=== PATIENT | male | born 1945 | race Caucasian/White ===

== ENCOUNTER 2018-04-25 10:20 | Outpatient (CLI) | payer MEDICARE ==
[2018-04-25] MEDS ORDERED: ALBU8.5H8 IH (11:38)
[2018-04-25] MEDS ORDERED: CALC500T11 PO (11:38)
[2018-04-25] MEDS ORDERED: NAPR220C15 PO (11:38)
[2018-04-25] MEDS ORDERED: LORA10TA7 PO (11:38)
[2018-04-25] MEDS ORDERED: TRAM50TA2 PO (11:38)
[2018-04-25] MEDS ORDERED: CHOL2000 PO (11:38)
[2018-04-25] MEDS ORDERED: CYAN-19 PO (11:38)
[2018-04-25 11:39] LABS: EOSINOPHILS # (AUTO) 0.1 X10'3 (0-0.9); EOSINOPHILS % (AUTO) 1.6 % (0-6); LYMPHOCYTES # (AUTO) 0.6 X10'3 (1.1-4.8); LYMPHOCYTES % (AUTO) 13.7 % (21-51); MEAN CORPUSCULAR HEMOGLOBIN 32.1 PG (27.0-31.0); MEAN CORPUSCULAR HGB CONC 34.2 % (33.0-36.5); MEAN CORPUSCULAR VOLUME 93.7 FL (78-98); MEAN PLATELET VOLUME 11.7 FL (7.4-10.4); MONOCYTES # (AUTO) 0.3 X10'3 (0-0.9); MONOCYTES % (AUTO) 7.4 % (2-12); NEUTROPHILS # (AUTO) 3.5 X10'3 (1.8-7.7); NEUTROPHILS % (AUTO) 76.3 % (42-75); PRE OP HEMOGLOBIN 15.4 g/dL (14.0-17.9); RED CELL DISTRIBUTION WIDTH 13.8 % (11.5-14.5)
[2018-04-25 11:48] LABS: PRE OP INR 1.1 INR
[2018-04-25 11:53] LABS: ALBUMIN 3.9 G/DL (3.4-5.0); ALKALINE PHOSPHATASE 67 IU/L (46-116); BLOOD UREA NITROGEN 15 MG/DL (7-18); CALCIUM 9.1 MG/DL (8.5-10.1); CHLORIDE 104 MMOL/L (99-107); CREATININE 0.88 MG/DL (0.60-1.10); PRE OP ALT 18 U/L (30-65); PRE OP ANION GAP 9 (8-16); PRE OP AST 18 U/L (10-37); PRE OP BILIRUB, TOTAL 0.8 MG/DL (0.0-1.0); PRE OP GLUCOSE 76 MG/DL (70-104); PRE OP POTASSIUM 3.9 MMOL/L (3.4-5.1); PRE OP SODIUM 141 MMOL/L (135-145); TOTAL PROTEIN 7.8 G/DL (6.4-8.2); eGFR 85 ML/MIN
[2018-04-25 12:13] LABS: PRE OP PLATELET COUNT 74 X10'3 (140-440)
[2018-05-01] MEDS ORDERED: ceFAZolin 1000mg inj ONE (06:33)
[2018-05-01] MEDS ORDERED: heparin 10,000 units/1 ML INJ ONE ×2 (06:33)
[2018-05-01] MEDS ORDERED: morphine 4 MG/ML inj SYRINge ONE ×2 (09:07→10:04)
== END 2018-04-25 23:59 | disposition home or self-care (01) ==
LOC: PRE-OP 10:20 → EDSTATUS 05-03 07:30
PROVIDERS: ATTEND Orthopaedic Surgery
DX: Z01.818 Encounter for other preprocedural examination (principal); M17.12 Unilateral primary osteoarthritis, left knee; J44.9 Chronic obstructive pulmonary disease, unspecified; K76.89 Other specified diseases of liver; R00.1 Bradycardia, unspecified; K74.60 Unspecified cirrhosis of liver; M10.9 Gout, unspecified
CPT/HCPCS: 36415; 71046; 80053; 85025; 85610; 85730; 86885; 86900; 86901; 86920; 87070; 93005

== ENCOUNTER 2018-04-29 02:29 | Inpatient (IN) | payer MEDICARE, OTHER ==
[2018-04-29] VITALS (10 sets, daily range): BP systolic 114–136; BP diastolic 60–85
[~2018-04-29] VITALS: Ht 170.2 cm; Wt 97.7 kg
[~2018-04-29 02:29] MED LIST: ALBU8.5H8 IH; CALC500T11 PO; CHOL2000 PO; CYAN-19 PO; LORA10TA7 PO; NAPR220C15 PO; TRAM50TA2 PO
[2018-04-29] MEDS ORDERED: normal saline 1000ml 1,000 ML IV ONE ×2 (03:00→05:40)
[2018-04-29] MEDS ORDERED: morphine 4 MG/ML inj SYRINge IV ONE ×2 (03:00→05:40)
[2018-04-29] MEDS ORDERED: ondansetron/PF 4mg/2ml inj IV ONE (03:00)
[2018-04-29] MEDS ORDERED: iohexol 300mg/ml 100ml inj. ONE (03:27)
[2018-04-29 03:55] LABS: BASOPHILS % (AUTO) 0.3 % (0-1); EOSINOPHILS % (AUTO) 0.1 % (0-6); HEMATOCRIT 43.3 % (42.0-52.0); HEMOGLOBIN 14.9 g/dl (14.0-17.9); LYMPHOCYTES # (AUTO) 0.4 X10'3 (1.1-4.8); MEAN CORPUSCULAR HEMOGLOBIN 32.3 PG (27.0-31.0); MEAN CORPUSCULAR HGB CONC 34.5 % (33.0-36.5); MEAN CORPUSCULAR VOLUME 93.8 FL (78-98); MEAN PLATELET VOLUME 11.6 FL (7.4-10.4); MONOCYTES # (AUTO) 0.2 X10'3 (0-0.9); MONOCYTES % (AUTO) 2.3 % (2-12); NEUTROPHILS # (AUTO) 6.7 X10'3 (1.8-7.7); NEUTROPHILS % (AUTO) 92.3 % (42-75); PLATELET COUNT 75 X10'3 (140-440); RED BLOOD COUNT 4.62 X10'6 (4.70-6.10); RED CELL DISTRIBUTION WIDTH 13.6 % (11.5-14.5); WHITE BLOOD COUNT 7.3 X10'3 (4.5-11.0)
[2018-04-29 04:06] LABS: INR 1.1 INR; PROTHROMBIN TIME 11.5 SECONDS (9.0-12.0)
[2018-04-29 04:11] LABS: ALANINE AMINOTRANSFERASE 98 U/L (12-78); ALBUMIN 3.8 G/DL (3.4-5.0); ALKALINE PHOSPHATASE 132 IU/L (46-116); ANION GAP 11 (8-16); ASPARTATE AMINO TRANSFERASE 81 U/L (10-37); BLOOD UREA NITROGEN 20 MG/DL (7-18); BUN/CREATININE RATIO 21.7 (5.4-32.0); CALCIUM 9.4 MG/DL (8.5-10.1); CHLORIDE 102 MMOL/L (99-107); CREATININE 0.92 MG/DL (0.60-1.10); GLUCOSE 142 MG/DL (70-104); MAGNESIUM 1.9 MG/DL (1.5-2.4); POTASSIUM 3.9 MMOL/L (3.5-5.1); SODIUM 138 MMOL/L (135-145); TOTAL CARBON DIOXIDE 25.2 MMOL/L (24-32); TOTAL PROTEIN 7.8 G/DL (6.4-8.2); eGFR 80 ML/MIN
[2018-04-29 04:24] LABS: LIPASE 14900 U/L (73-393)
[2018-04-29] MEDS ORDERED: ALBU18HF2 INH (04:59)
[2018-04-29] MEDS ORDERED: CARB1DRO (04:59)
[2018-04-29] MEDS ORDERED: CARB1DRO EACHEYE (04:59)
[2018-04-29 06:02] LABS: CLARITY,URINE CLEAR (Clear); COLOR,URINE YELLOW (Yellow); GLUCOSE, URINE NEGATIVE (Neg); KETONES,URINE 15 mg/dl (Neg); LEUKOCYTE ESTERASE ,URINE NEGATIVE (Neg); NITRITES, URINE NEGATIVE (Neg); OCCULT BLOOD,URINE TRACE-INTACT (Neg); PROTEIN,URINE NEGATIVE (Neg)
[2018-04-29 06:04] LABS: UA COLLECTION TYPE NON-SPECIFIED
[2018-04-29 06:08] LABS: BACTERIA,URINE NONE SEEN /HPF (Neg); RBC,URINE 0-2 /HPF (0-2); SQUAMOUS EPITHELIAL CELL,UR NONE SEEN /LPF (FEW); WBC,URINE 0-4 /HPF (0-4)
[2018-04-29 06:09] LABS: MUCUS STRANDS MODERATE /LPF (Neg)
[2018-04-29] MEDS: normal saline 1000ml 1,000 ML IV SCH (07:56)
[2018-04-29] MEDS: docusate sod 100mg capsule PO SCH ×2 (08:00→19:28)
[2018-04-29] MEDS ORDERED: magnesium hydroxide 30ml (MOM) UD suspension PO PRN (08:00)
[2018-04-29] MEDS ORDERED: ondansetron/PF 4mg/2ml inj IV PRN (08:00)
[2018-04-29] MEDS ORDERED: magnesium Cl slow-release 64mg tablet PO PRN (08:00)
[2018-04-29] MEDS ORDERED: potassium Cl 20 mEq SR tablet PO PRN (08:00)
[2018-04-29] MEDS ORDERED: potassium Cl 40MEQ/NS 500ml 500 ML IV PRN ×2 (08:00)
[2018-04-29] MEDS ORDERED: magnesium 4gm in 100ml NS 100 ML IV PRN (08:00)
[2018-04-29] MEDS ORDERED: magnesium 1gm/100ml D5W IVPB 100 ML IV PRN (08:00)
[2018-04-29] MEDS ORDERED: piperacillin/tazo 3.375gm/50ml 50 ML IV SCH (08:00)
[2018-04-29] MEDS: K and/or MAG REPLACEMENT MC SCH (08:00)
[2018-04-29] MEDS ORDERED: acetaminophen 650mg rectal suppository RC PRN (08:00)
[2018-04-29] MEDS ORDERED: fentaNYL/PF 50MCG/1 ML 2ML syringe ONE (08:50)
[2018-04-29] MEDS ORDERED: LIDOcaine Viscous 15ml cup ONE (08:51)
[2018-04-29] MEDS ORDERED: diphenhydrAMINE 50 mg/ml inj ONE (08:51)
[2018-04-29] MEDS ORDERED: glucagon, human recombinant 1mg kit ONE (08:51)
[2018-04-29] MEDS ORDERED: MIDAZolam 5mg/5ml vial ONE (08:51)
[2018-04-29] MEDS ORDERED: iohexol 300 MG/1 ML 50ml polymer ONE (08:51)
[2018-04-29] MEDS ORDERED: levoFLOXACIN-Levaquin 500mg/D5 0 ML IV ONE (08:51)
[2018-04-29] MEDS ORDERED: normal saline 1000ml 1,000 ML IV SCH (08:54)
[2018-04-29] MEDS ORDERED: LIDOcaine Viscous 15ml cup PO ONE (08:55)
[2018-04-29] MEDS ORDERED: glucagon, human recombinant 1mg kit IV PRN (08:55)
[2018-04-29] MEDS ORDERED: simethicone 40mg/0.6ml oral drops 30ml MC ONE (08:55)
[2018-04-29] MEDS ORDERED: iohexol 300 MG/1 ML 50ml polymer IV ONE (08:55)
[2018-04-29] MEDS ORDERED: MIDAZolam 5mg/5ml vial IV PRN (08:55)
[2018-04-29] MEDS ORDERED: fentaNYL/PF 50MCG/1 ML 2ML syringe IV PRN (08:55)
[2018-04-29] MEDS: morphine 4 MG/ML inj SYRINge IV PRN ×4 (09:22→23:39)
[2018-04-29] MEDS: piperacillin/tazo 3.375gm/50ml 50 ML IV SCH ×2 (15:48→20:51)
[2018-04-29] MEDS ORDERED: traMADol 50MG tablet PO PRN (16:55)
[2018-04-29] MEDS: pantoprazole 40 MG vial IV SCH (18:06)
[2018-04-29] MEDS: lactobacillus rhamnosus 10,000 MMU CELLS/CAPSULE PO SCH (19:28)
[2018-04-29] MEDS ORDERED: albuterol 2.5 MG/3 ML nebule NEB PRN (20:00)
[2018-04-29] MEDS ORDERED: calcium carbonate 500mg chew tablet PO PRN (21:00)
[2018-04-29] MEDS ORDERED: acetaminophen 325mg tablet PO PRN (23:25)
[2018-04-30] VITALS: BP 99/65
[2018-04-30 01:00] VITALS: BP 122/68
[2018-04-30] MEDS: piperacillin/tazo 3.375gm/50ml 50 ML IV SCH ×4 (02:11→21:42)
[2018-04-30 05:27] LABS: PARTIAL THROMBOPLASTIN TIME 31 SECONDS (22-32)
[2018-04-30 05:49] LABS: ALANINE AMINOTRANSFERASE 54 U/L (12-78); ALBUMIN 2.9 G/DL (3.4-5.0); ALBUMIN/GLOBULIN RATIO 0.9 (1.1-1.5); ALKALINE PHOSPHATASE 83 IU/L (46-116); ANION GAP 9 (8-16); ASPARTATE AMINO TRANSFERASE 28 U/L (10-37); BILIRUBIN,TOTAL 2.5 MG/DL (0.1-1.0); BLOOD UREA NITROGEN 11 MG/DL (7-18); BUN/CREATININE RATIO 11.7 (5.4-32.0); CALCIUM 7.9 MG/DL (8.5-10.1); CHLORIDE 105 MMOL/L (99-107); CREATININE 0.94 MG/DL (0.60-1.10); GLUCOSE 77 MG/DL (70-104); MAGNESIUM 1.7 MG/DL (1.5-2.4); POTASSIUM 3.4 MMOL/L (3.5-5.1); SODIUM 141 MMOL/L (135-145); TOTAL CARBON DIOXIDE 26.9 MMOL/L (24-32); TOTAL PROTEIN 6.2 G/DL (6.4-8.2); eGFR 78 ML/MIN
[2018-04-30] MEDS: normal saline 1000ml 1,000 ML IV SCH (06:49)
[2018-04-30 07:39] VITALS: BP 129/74
[2018-04-30] MEDS ORDERED: iohexol 300 MG/1 ML 50ml polymer ONE (08:00)
[2018-04-30] MEDS: polyvinyl alcohol ophthalmic drops 15ml bottle EACHEYE SCH (08:00)
[2018-04-30] MEDS: K and/or MAG REPLACEMENT MC SCH (08:00)
[2018-04-30] MEDS: pantoprazole 40 MG vial IV SCH (08:18)
[2018-04-30] MEDS: loratadine 10mg tablet PO SCH (08:18)
[2018-04-30] MEDS: docusate sod 100mg capsule PO SCH ×2 (08:18→19:56)
[2018-04-30] MEDS: lactobacillus rhamnosus 10,000 MMU CELLS/CAPSULE PO SCH ×2 (08:18→19:56)
[2018-04-30] MEDS: vitamin D (cholecalciferol) 1,000 unit tablet PO SCH (08:19)
[2018-04-30] MEDS: morphine 4 MG/ML inj SYRINge IV PRN ×2 (08:19→13:20)
[2018-04-30] MEDS: cyanocobalamin 500mcg tablet PO SCH (08:19)
[2018-04-30 08:28] LABS: BASOPHILS % (AUTO) 0.2 % (0-1); EOSINOPHILS % (AUTO) 0.1 % (0-6); HEMATOCRIT 38.7 % (42.0-52.0); HEMOGLOBIN 13.4 g/dl (14.0-17.9); LYMPHOCYTES # (AUTO) 0.3 X10'3 (1.1-4.8); LYMPHOCYTES % (AUTO) 3.6 % (21-51); MEAN CORPUSCULAR HEMOGLOBIN 32.5 PG (27.0-31.0); MEAN CORPUSCULAR HGB CONC 34.7 % (33.0-36.5); MEAN CORPUSCULAR VOLUME 93.5 FL (78-98); MONOCYTES # (AUTO) 0.8 X10'3 (0-0.9); MONOCYTES % (AUTO) 8.6 % (2-12); NEUTROPHILS # (AUTO) 8.1 X10'3 (1.8-7.7); NEUTROPHILS % (AUTO) 87.5 % (42-75); PLATELET COUNT 51 X10'3 (140-440); RED BLOOD COUNT 4.14 X10'6 (4.70-6.10); RED CELL DISTRIBUTION WIDTH 13.5 % (11.5-14.5); WHITE BLOOD COUNT 9.2 X10'3 (4.5-11.0)
[2018-04-30] MEDS: potassium Cl 20 mEq SR tablet PO PRN ×3 (08:39→17:38)
[2018-04-30] MEDS ORDERED: cefazolin/dext.iso 2gm/50ml 50 ML IV ONE (12:00)
[2018-04-30 12:23] VITALS: BP 103/63
[2018-04-30] MEDS: naproxen 500mg tablet PO PRN (15:38)
[2018-04-30 19:50] VITALS: BP 106/60
[2018-05-01] VITALS (24 sets, daily range): BP systolic 91–125; BP diastolic 46–95
[2018-05-01] MEDS: piperacillin/tazo 3.375gm/50ml 50 ML IV SCH ×4 (03:07→20:18)
[2018-05-01] MEDS: morphine 4 MG/ML inj SYRINge IV PRN ×7 (03:15→17:09)
[2018-05-01] MEDS: normal saline 1000ml 1,000 ML IV SCH ×2 (04:43→17:14)
[2018-05-01 05:19] LABS: BASOPHILS % (AUTO) 0.2 % (0-1); EOSINOPHILS # (AUTO) 0.1 X10'3 (0-0.9); EOSINOPHILS % (AUTO) 1.4 % (0-6); HEMATOCRIT 37.3 % (42.0-52.0); LYMPHOCYTES # (AUTO) 0.4 X10'3 (1.1-4.8); LYMPHOCYTES % (AUTO) 5.6 % (21-51); MEAN CORPUSCULAR HEMOGLOBIN 32.6 PG (27.0-31.0); MEAN CORPUSCULAR HGB CONC 34.9 % (33.0-36.5); MEAN CORPUSCULAR VOLUME 93.5 FL (78-98); MEAN PLATELET VOLUME 11.7 FL (7.4-10.4); MONOCYTES # (AUTO) 0.6 X10'3 (0-0.9); MONOCYTES % (AUTO) 8.3 % (2-12); NEUTROPHILS # (AUTO) 6.2 X10'3 (1.8-7.7); NEUTROPHILS % (AUTO) 84.5 % (42-75); PARTIAL THROMBOPLASTIN TIME 30 SECONDS (22-32); PLATELET COUNT 51 X10'3 (140-440); RED BLOOD COUNT 3.99 X10'6 (4.70-6.10); RED CELL DISTRIBUTION WIDTH 13.5 % (11.5-14.5); WHITE BLOOD COUNT 7.4 X10'3 (4.5-11.0)
[2018-05-01 05:32] LABS: ALANINE AMINOTRANSFERASE 42 U/L (12-78); ALBUMIN 2.8 G/DL (3.4-5.0); ALBUMIN/GLOBULIN RATIO 0.8 (1.1-1.5); ALKALINE PHOSPHATASE 76 IU/L (46-116); ANION GAP 6 (8-16); ASPARTATE AMINO TRANSFERASE 20 U/L (10-37); BLOOD UREA NITROGEN 9 MG/DL (7-18); BUN/CREATININE RATIO 8.4 (5.4-32.0); CALCIUM 8.1 MG/DL (8.5-10.1); CHLORIDE 108 MMOL/L (99-107); CREATININE 1.07 MG/DL (0.60-1.10); GLUCOSE 86 MG/DL (70-104); LIPASE 231 U/L (73-393); MAGNESIUM 1.8 MG/DL (1.5-2.4); POTASSIUM 3.8 MMOL/L (3.5-5.1); SODIUM 139 MMOL/L (135-145); TOTAL CARBON DIOXIDE 25.4 MMOL/L (24-32); TOTAL PROTEIN 6.3 G/DL (6.4-8.2); eGFR 68 ML/MIN
[2018-05-01] MEDS ORDERED: cefazolin/dext.iso 2gm/50ml 50 ML IV ONE ×2 (06:00→06:30)
[2018-05-01] MEDS ORDERED: BUPIVAcaine/PF 2.5mg/ml (0.25%) 10ml vial ONE (06:43)
[2018-05-01] MEDS ORDERED: LIDOcaine 1% 30ml preserv. free vial ONE (06:43)
[2018-05-01] MEDS: pantoprazole 40 MG vial IV SCH (06:54)
[2018-05-01] MEDS ORDERED: EPHEDRINE SULFATE/0.9% NACL/PF 50 MG/5 ML ML IJ ONE (07:13)
[2018-05-01] MEDS ORDERED: dexamethasone sod phosphate 10mg/ml inj ONE (07:13)
[2018-05-01] MEDS ORDERED: sevoflurane 250ml liquid IH ONE (07:13)
[2018-05-01 07:22] LABS: LARGE PLATELETS FEW; PLATELET ESTIMATE DECREASED
[2018-05-01] MEDS ORDERED: fentaNYL/PF 50MCG/1 ML 2ML syringe ONE (07:23)
[2018-05-01] MEDS ORDERED: LIDOcaine 2% (20mg/ml) 5ml vial ONE (07:24)
[2018-05-01] MEDS ORDERED: propofol inj 20 ML IV ONE (07:24)
[2018-05-01] MEDS: cyanocobalamin 500mcg tablet PO SCH (08:00)
[2018-05-01] MEDS: polyvinyl alcohol ophthalmic drops 15ml bottle EACHEYE SCH (08:00)
[2018-05-01] MEDS: lactobacillus rhamnosus 10,000 MMU CELLS/CAPSULE PO SCH ×2 (08:00→20:19)
[2018-05-01] MEDS: loratadine 10mg tablet PO SCH (08:00)
[2018-05-01] MEDS: docusate sod 100mg capsule PO SCH ×2 (08:00→20:19)
[2018-05-01] MEDS: vitamin D (cholecalciferol) 1,000 unit tablet PO SCH (08:00)
[2018-05-01] MEDS: K and/or MAG REPLACEMENT MC SCH (08:00)
[2018-05-01] MEDS ORDERED: HYDROmorphone 1 mg/ml syringe IV PRN ×2 (08:10)
[2018-05-01] MEDS ORDERED: normal saline 1000ml 1,000 ML IV ONE (08:10)
[2018-05-01] MEDS ORDERED: ondansetron/PF 4mg/2ml inj IV PRN (08:10)
[2018-05-01] MEDS ORDERED: glycopyrrolate 0.2mg/ml inj ONE (08:38)
[2018-05-01] MEDS ORDERED: rocuronium 10mg/ml inj IV ONE (08:38)
[2018-05-01] MEDS ORDERED: neostigmine methylsulfate 1 MG/ML 10ml vial ONE (08:38)
[2018-05-01] MEDS ORDERED: ondansetron/PF 4mg/2ml inj ONE (08:39)
[2018-05-01] MEDS ORDERED: albuterol 60 PUFF/8GM Inhaler IH ONE (09:03)
[2018-05-01] MEDS ORDERED: HYDROcodone/acetaminophen 5mg/325mg tablet PO PRN (09:15)
[2018-05-01] MEDS: HYDROcodone/acetaminophen 10/325mg tab PO PRN ×2 (14:37→19:11)
[2018-05-02] VITALS: BP 90/53
[2018-05-02] MEDS: piperacillin/tazo 3.375gm/50ml 50 ML IV SCH ×2 (01:57→07:28)
[2018-05-02] MEDS: naproxen 500mg tablet PO PRN (01:57)
[2018-05-02 03:37] VITALS: BP 104/57
[2018-05-02 05:06] LABS: BASOPHILS % (AUTO) 0.1 % (0-1); EOSINOPHILS # (AUTO) 0.1 X10'3 (0-0.9); EOSINOPHILS % (AUTO) 1.1 % (0-6); HEMATOCRIT 36.3 % (42.0-52.0); HEMOGLOBIN 12.3 g/dl (14.0-17.9); LYMPHOCYTES # (AUTO) 0.4 X10'3 (1.1-4.8); LYMPHOCYTES % (AUTO) 5.2 % (21-51); MEAN CORPUSCULAR HEMOGLOBIN 31.9 PG (27.0-31.0); MEAN CORPUSCULAR HGB CONC 33.7 % (33.0-36.5); MEAN CORPUSCULAR VOLUME 94.6 FL (78-98); MEAN PLATELET VOLUME 12.7 FL (7.4-10.4); MONOCYTES # (AUTO) 0.7 X10'3 (0-0.9); NEUTROPHILS # (AUTO) 6.8 X10'3 (1.8-7.7); NEUTROPHILS % (AUTO) 84.6 % (42-75); PLATELET COUNT 58 X10'3 (140-440); RED BLOOD COUNT 3.84 X10'6 (4.70-6.10); RED CELL DISTRIBUTION WIDTH 13.5 % (11.5-14.5)
[2018-05-02 05:17] LABS: PARTIAL THROMBOPLASTIN TIME 23 SECONDS (22-32)
[2018-05-02 05:47] LABS: ALANINE AMINOTRANSFERASE 36 U/L (12-78); ALBUMIN 2.8 G/DL (3.4-5.0); ALBUMIN/GLOBULIN RATIO 0.8 (1.1-1.5); ALKALINE PHOSPHATASE 74 IU/L (46-116); ANION GAP 8 (8-16); ASPARTATE AMINO TRANSFERASE 23 U/L (10-37); BILIRUBIN,TOTAL 1.5 MG/DL (0.1-1.0); BLOOD UREA NITROGEN 12 MG/DL (7-18); BUN/CREATININE RATIO 7.1 (5.4-32.0); CALCIUM 8.3 MG/DL (8.5-10.1); CHLORIDE 104 MMOL/L (99-107); CREATININE 1.69 MG/DL (0.60-1.10); GLUCOSE 95 MG/DL (70-104); MAGNESIUM 1.7 MG/DL (1.5-2.4); POTASSIUM 4.2 MMOL/L (3.5-5.1); SODIUM 136 MMOL/L (135-145); TOTAL CARBON DIOXIDE 24.4 MMOL/L (24-32); TOTAL PROTEIN 6.3 G/DL (6.4-8.2); eGFR 40 ML/MIN
[2018-05-02] MEDS: loratadine 10mg tablet PO SCH (07:26)
[2018-05-02] MEDS: cyanocobalamin 500mcg tablet PO SCH (07:26)
[2018-05-02] MEDS: vitamin D (cholecalciferol) 1,000 unit tablet PO SCH (07:26)
[2018-05-02] MEDS: docusate sod 100mg capsule PO SCH ×2 (07:26→21:14)
[2018-05-02] MEDS: lactobacillus rhamnosus 10,000 MMU CELLS/CAPSULE PO SCH ×2 (07:26→21:14)
[2018-05-02] MEDS: pantoprazole 40 MG vial IV SCH (07:26)
[2018-05-02] MEDS: polyvinyl alcohol ophthalmic drops 15ml bottle EACHEYE SCH (07:29)
[2018-05-02 08:00] VITALS: BP_SYST 112; BP_SYST 94; BP_DIAS 53; BP_DIAS 56
[2018-05-02] MEDS: K and/or MAG REPLACEMENT MC SCH (08:00)
[2018-05-02 12:00] VITALS: BP 98/57
[2018-05-02] MEDS: normal saline 1000ml 1,000 ML IV SCH (18:32)
[2018-05-02 20:00] VITALS: BP 101/54
[2018-05-02] MEDS: tamsulosin 0.4mg capsule PO SCH (21:14)
[2018-05-03] VITALS: BP 102/55
[2018-05-03] MEDS: normal saline 1000ml 1,000 ML IV SCH (04:54)
[2018-05-03 05:23] LABS: HEMATOCRIT 32.1 % (42.0-52.0); HEMOGLOBIN 10.9 g/dl (14.0-17.9); MEAN CORPUSCULAR HEMOGLOBIN 31.7 PG (27.0-31.0); MEAN CORPUSCULAR VOLUME 93.4 FL (78-98); MEAN PLATELET VOLUME 12.6 FL (7.4-10.4); PLATELET COUNT 67 X10'3 (140-440); RED BLOOD COUNT 3.44 X10'6 (4.70-6.10); RED CELL DISTRIBUTION WIDTH 13.2 % (11.5-14.5); WHITE BLOOD COUNT 3.8 X10'3 (4.5-11.0)
[2018-05-03 06:05] LABS: ALANINE AMINOTRANSFERASE 24 U/L (12-78); ALBUMIN 2.4 G/DL (3.4-5.0); ALBUMIN/GLOBULIN RATIO 0.8 (1.1-1.5); ALKALINE PHOSPHATASE 62 IU/L (46-116); ANION GAP 8 (8-16); ASPARTATE AMINO TRANSFERASE 18 U/L (10-37); BILIRUBIN,TOTAL 0.9 MG/DL (0.1-1.0); BLOOD UREA NITROGEN 13 MG/DL (7-18); BUN/CREATININE RATIO 8.2 (5.4-32.0); CALCIUM 8.8 MG/DL (8.5-10.1); CHLORIDE 109 MMOL/L (99-107); CREATININE 1.58 MG/DL (0.60-1.10); GLUCOSE 88 MG/DL (70-104); MAGNESIUM 1.8 MG/DL (1.5-2.4); POTASSIUM 3.8 MMOL/L (3.5-5.1); SODIUM 141 MMOL/L (135-145); TOTAL CARBON DIOXIDE 23.6 MMOL/L (24-32); TOTAL PROTEIN 5.6 G/DL (6.4-8.2); eGFR 43 ML/MIN
[2018-05-03 06:41] LABS: TOTAL CELLS COUNTED 100
[2018-05-03 06:42] LABS: LARGE PLATELETS FEW; PLATELET ESTIMATE DECREASED
[2018-05-03 07:17] VITALS: BP 125/68
[2018-05-03] MEDS: polyvinyl alcohol ophthalmic drops 15ml bottle EACHEYE SCH (08:00)
[2018-05-03] MEDS: K and/or MAG REPLACEMENT MC SCH (08:00)
[2018-05-03] MEDS: lactobacillus rhamnosus 10,000 MMU CELLS/CAPSULE PO SCH ×2 (08:53→20:08)
[2018-05-03] MEDS: docusate sod 100mg capsule PO SCH ×2 (08:53→20:08)
[2018-05-03] MEDS: vitamin D (cholecalciferol) 1,000 unit tablet PO SCH (08:53)
[2018-05-03] MEDS: pantoprazole 40 MG vial IV SCH (08:53)
[2018-05-03] MEDS: loratadine 10mg tablet PO SCH (08:53)
[2018-05-03] MEDS: cyanocobalamin 500mcg tablet PO SCH (08:54)
[2018-05-03 12:00] VITALS: BP 108/63
[2018-05-03 18:00] VITALS: BP 114/63
[2018-05-03] MEDS: tamsulosin 0.4mg capsule PO SCH (21:39)
[2018-05-04] VITALS: BP 116/67
[2018-05-04 03:38] LABS: BASOPHILS % (AUTO) 0.5 % (0-1); EOSINOPHILS # (AUTO) 0.1 X10'3 (0-0.9); EOSINOPHILS % (AUTO) 3.2 % (0-6); HEMATOCRIT 32.7 % (42.0-52.0); HEMOGLOBIN 11.4 g/dl (14.0-17.9); LYMPHOCYTES # (AUTO) 0.4 X10'3 (1.1-4.8); LYMPHOCYTES % (AUTO) 13.2 % (21-51); MEAN CORPUSCULAR HEMOGLOBIN 32.3 PG (27.0-31.0); MEAN CORPUSCULAR HGB CONC 34.8 % (33.0-36.5); MEAN CORPUSCULAR VOLUME 92.7 FL (78-98); MEAN PLATELET VOLUME 11.8 FL (7.4-10.4); MONOCYTES # (AUTO) 0.3 X10'3 (0-0.9); MONOCYTES % (AUTO) 11.3 % (2-12); NEUTROPHILS % (AUTO) 71.8 % (42-75); PLATELET COUNT 74 X10'3 (140-440); RED BLOOD COUNT 3.53 X10'6 (4.70-6.10); RED CELL DISTRIBUTION WIDTH 13.4 % (11.5-14.5); WHITE BLOOD COUNT 2.8 X10'3 (4.5-11.0)
[2018-05-04 04:08] LABS: ALANINE AMINOTRANSFERASE 20 U/L (12-78); ALBUMIN 2.3 G/DL (3.4-5.0); ALBUMIN/GLOBULIN RATIO 0.7 (1.1-1.5); ALKALINE PHOSPHATASE 66 IU/L (46-116); ANION GAP 11 (8-16); ASPARTATE AMINO TRANSFERASE 20 U/L (10-37); BILIRUBIN,TOTAL 0.7 MG/DL (0.1-1.0); BLOOD UREA NITROGEN 7 MG/DL (7-18); BUN/CREATININE RATIO 7.1 (5.4-32.0); CALCIUM 8.5 MG/DL (8.5-10.1); CHLORIDE 108 MMOL/L (99-107); CREATININE 0.98 MG/DL (0.60-1.10); GLUCOSE 91 MG/DL (70-104); MAGNESIUM 1.7 MG/DL (1.5-2.4); POTASSIUM 3.7 MMOL/L (3.5-5.1); SODIUM 144 MMOL/L (135-145); TOTAL CARBON DIOXIDE 25.3 MMOL/L (24-32); TOTAL PROTEIN 5.8 G/DL (6.4-8.2); eGFR 75 ML/MIN
[2018-05-04 04:27] LABS: TOTAL CELLS COUNTED 100
[2018-05-04 04:28] LABS: LARGE PLATELETS MODERATE; PLATELET ESTIMATE DECREASED
[2018-05-04] MEDS ORDERED: pantoprazole 40mg Tablet.DR PO SCH (07:30)
[2018-05-04] MEDS ORDERED: Potassium Cl inj 10 MEQ in normal saline 1000ml 1,000 ML IV SCH (07:56)
[2018-05-04] MEDS: K and/or MAG REPLACEMENT MC SCH (08:00)
[2018-05-04] MEDS: polyvinyl alcohol ophthalmic drops 15ml bottle EACHEYE SCH (08:00)
[2018-05-04] MEDS: lactobacillus rhamnosus 10,000 MMU CELLS/CAPSULE PO SCH (08:36)
[2018-05-04] MEDS: loratadine 10mg tablet PO SCH (08:37)
[2018-05-04] MEDS: docusate sod 100mg capsule PO SCH (08:37)
[2018-05-04] MEDS: vitamin D (cholecalciferol) 1,000 unit tablet PO SCH (08:37)
[2018-05-04] MEDS: cyanocobalamin 500mcg tablet PO SCH (08:38)
[2018-05-04] MEDS ORDERED: LIDOcaine 0.5% (5mg/ml) 50ml vial ONE (12:52)
[2018-05-04 13:04] VITALS: BP 120/68
[2018-05-04] MEDS ORDERED: SPIR25TA PO (13:12)
[2018-05-04] MEDS ORDERED: TAMS0.4C32 PO (13:12)
[2018-05-06 13:11] LABS: PSA, FREE 0.23 ng/mL
== END 2018-05-04 14:18 | DRG 417 ==
LOC: ER 02:29 → ED HOLD 07:56 → SUR 3N 11:58 → PACU 05-01 07:12 → SUR 3N 05-01 10:58
PROVIDERS: ADMIT Internal Medicine; ATTEND Internal Medicine
PROC: 0F798DZ Dilation of Common Bile Duct with Intraluminal Device, Via Natural or Artificial Opening Endoscopic (ICD-10-PCS; 2018-04-29)
PROC: BF101ZZ Fluoroscopy of Bile Ducts using Low Osmolar Contrast (ICD-10-PCS; 2018-04-29)
PROC: BW211ZZ Computerized Tomography (CT Scan) of Abdomen and Pelvis using Low Osmolar Contrast (ICD-10-PCS; 2018-04-29)
PROC: 0FT44ZZ Resection of Gallbladder, Percutaneous Endoscopic Approach (ICD-10-PCS; principal; 2018-05-01 07:23)
DX: K80.70 Calculus of gallbladder and bile duct without cholecystitis without obstruction (principal); K85.10 Biliary acute pancreatitis without necrosis or infection; B19.20 Unspecified viral hepatitis C without hepatic coma; E87.6 Hypokalemia; D69.6 Thrombocytopenia, unspecified; J45.909 Unspecified asthma, uncomplicated; K70.31 Alcoholic cirrhosis of liver with ascites; N40.0 Benign prostatic hyperplasia without lower urinary tract symptoms; Z66 Do not resuscitate; Z88.8 Allergy status to other drugs, medicaments and biological substances; Z79.899 Other long term (current) drug therapy
CPT/HCPCS: 36415; 43274; 71045; 74177; 76700; 76705; 80053; 81001; 82140; 83690; 83735; 84153; 84154; 84484; 85025; 85610; 85730; 87070; 88304; 93005; 96361; 96374; 96375; 96376; 99285; A4353; A4620; A6209; A6251; A6253; A6257; A6449; A7000; C9113; G0500; J0690; J1100; J1170; J1200; J1610; J1956; J2001; J2250; J2270; J2405; J2543; J2704; J2710; J3010; J3420; J3480; J3490; J7030; J7120; Q9967

== ENCOUNTER 2018-06-04 11:57 | Day surgery (SDC) | payer MEDICARE, OTHER, MEDICAID ==
[~2018-06-04] VITALS: Ht 170.2 cm; Wt 93.2 kg
[~2018-06-04 11:57] MED LIST changes: +ALBU18HF2 INH; -ALBU8.5H8 IH; +CARB1DRO EACHEYE; +SPIR25TA PO; +TAMS0.4C32 PO
[2018-06-04 12:05] VITALS: BP 136/86
[2018-06-04] MEDS ORDERED: fentaNYL/PF 50MCG/1 ML 2ML syringe ONE (12:43)
[2018-06-04] MEDS ORDERED: MIDAZolam 5mg/5ml vial ONE (12:43)
[2018-06-04] MEDS ORDERED: LIDOcaine Viscous 15ml cup ONE (12:43)
[2018-06-04] MEDS ORDERED: glucagon, human recombinant 1mg kit ONE (12:44)
[2018-06-04] MEDS ORDERED: iohexol 300 MG/1 ML 50ml polymer ONE (12:50)
[2018-06-04 14:32] VITALS: BP 115/69
[2018-06-04 14:42] VITALS: BP 100/55
[2018-06-04 14:52] VITALS: BP 117/45
[2018-06-04 15:02] VITALS: BP 116/44
[2018-06-04 15:12] VITALS: BP 114/59
== END 2018-06-04 15:30 | disposition home or self-care (01) ==
LOC: GI LAB 11:57
PROVIDERS: ATTEND Internal Medicine Gastroenterology
DX: Z46.59 Encounter for fitting and adjustment of other gastrointestinal appliance and device (principal); Z79.891 Long term (current) use of opiate analgesic; Z87.891 Personal history of nicotine dependence; Z90.49 Acquired absence of other specified parts of digestive tract; Z98.41 Cataract extraction status, right eye; Z98.42 Cataract extraction status, left eye; Z86.19 Personal history of other infectious and parasitic diseases; Z88.8 Allergy status to other drugs, medicaments and biological substances; Z98.890 Other specified postprocedural states; Z79.899 Other long term (current) drug therapy
CPT/HCPCS: 43275; 74328; 99153; G0500; J2250; J3010; J7030; Q9967; 43276; A4620; J1610

== ENCOUNTER 2018-07-05 05:12 | Inpatient (IN) | payer MEDICARE, OTHER ==
[2018-06-27 11:02] LABS: BASOPHILS % (AUTO) 0.3 % (0-1); EOSINOPHILS # (AUTO) 0.1 X10'3 (0-0.9); EOSINOPHILS % (AUTO) 2.1 % (0-6); LYMPHOCYTES # (AUTO) 0.6 X10'3 (1.1-4.8); LYMPHOCYTES % (AUTO) 12.4 % (21-51); MEAN CORPUSCULAR HEMOGLOBIN 31.9 PG (27.0-31.0); MEAN CORPUSCULAR HGB CONC 33.9 % (33.0-36.5); MEAN CORPUSCULAR VOLUME 94.1 FL (78-98); MEAN PLATELET VOLUME 12.1 FL (7.4-10.4); MONOCYTES # (AUTO) 0.4 X10'3 (0-0.9); MONOCYTES % (AUTO) 7.9 % (2-12); NEUTROPHILS % (AUTO) 77.3 % (42-75); PRE OP HEMATOCRIT 43.2 % (42.0-52.0); PRE OP HEMOGLOBIN 14.6 g/dL (14.0-17.9); RED BLOOD COUNT 4.59 X10'6 (4.70-6.10); RED CELL DISTRIBUTION WIDTH 14.3 % (11.5-14.5)
[2018-06-27 11:11] LABS: PRE OP INR 1.1 INR; PRE OP PROTIME 11.2 SECONDS (9.0-12.0)
[2018-06-27 11:17] LABS: ALBUMIN 3.7 G/DL (3.4-5.0); ALBUMIN/GLOBULIN RATIO 0.9 (1.1-1.5); ALKALINE PHOSPHATASE 72 IU/L (46-116); BLOOD UREA NITROGEN 14 MG/DL (7-18); BUN/CREATININE RATIO 12.4 (5.4-32.0); CALCIUM 9.5 MG/DL (8.5-10.1); CHLORIDE 104 MMOL/L (99-107); CREATININE 1.13 MG/DL (0.60-1.10); PRE OP ALT 24 U/L (30-65); PRE OP ANION GAP 7 (8-16); PRE OP AST 16 U/L (10-37); PRE OP BILIRUB, TOTAL 0.9 MG/DL (0.0-1.0); PRE OP GLUCOSE 83 MG/DL (70-104); PRE OP POTASSIUM 4.6 MMOL/L (3.4-5.1); PRE OP SODIUM 137 MMOL/L (135-145); TOTAL CARBON DIOXIDE 26.1 MMOL/L (24-32); TOTAL PROTEIN 7.8 G/DL (6.4-8.2); eGFR 63 ML/MIN
[2018-06-27 11:29] LABS: PRE OP PLATELET COUNT 84 X10'3 (140-440)
[2018-07-05] VITALS (17 sets, daily range): BP systolic 90–133; BP diastolic 49–89
[~2018-07-05] VITALS: Ht 170.2 cm; Wt 93.0 kg
[~2018-07-05 05:12] MED LIST changes: -ALBU18HF2 INH; -CALC500T11 PO; -CARB1DRO EACHEYE; -LORA10TA7 PO; -NAPR220C15 PO; -SPIR25TA PO; +SPIR25TA5 PO; -TAMS0.4C32 PO; -TRAM50TA2 PO; +cefazolin/dext.iso 2gm/50ml 50 ML IV ONE; +ringers solution, lacted 1,000 ML IV SCH
[2018-07-05] MEDS ORDERED: tranexamic acid inj. 1,000 MG in normal saline 100ml IV soln 90 ML IV ONE (05:30)
[2018-07-05] MEDS ORDERED: famotidine 20mg tablet PO ONE (05:30)
[2018-07-05] MEDS ORDERED: albuterol 2.5 MG/3 ML nebule NEB ONE (05:30)
[2018-07-05] MEDS ORDERED: vancomycin inj 1,500 MG in normal saline 300ml IV soln IV ONE (05:30)
[2018-07-05] MEDS ORDERED: cefazolin/dext.iso 2gm/50ml 50 ML IV ONE ×2 (05:30)
[2018-07-05] MEDS ORDERED: LIDOcaine 1% (10mg/ml) 2ml vial ONE (06:01)
[2018-07-05] MEDS ORDERED: ceFAZolin 1000mg inj ONE (06:42)
[2018-07-05] MEDS ORDERED: cloNIDine hcl/PF 100mcg/ml inj ONE (07:20)
[2018-07-05] MEDS ORDERED: tetracaine 1% (10mg/ml) pres. free inj. ONE (07:20)
[2018-07-05] MEDS ORDERED: propofol 10mg/ml 20ml vial IV ONE (07:22)
[2018-07-05] MEDS ORDERED: MIDAZolam 1mg/ml 10ml vial ONE (07:23)
[2018-07-05] MEDS ORDERED: fentaNYL/PF 50MCG/1 ML 2ML syringe ONE (07:23)
[2018-07-05] MEDS ORDERED: BUPIVAcaine/dex-water/PF 7.5 mg/ml 2ml ampul ONE (07:24)
[2018-07-05] MEDS ORDERED: ePHEDrine 50MG/ML INJ. ONE (07:46)
[2018-07-05] MEDS ORDERED: ringers solution, lacted 1,000 ML IV SCH (08:53)
[2018-07-05] MEDS ORDERED: meperidine/PF 25mg/ml syringe IV PRN ×3 (08:55)
[2018-07-05] MEDS ORDERED: proCHLORperazine 10 MG/2 ml inj IV PRN (08:55)
[2018-07-05] MEDS ORDERED: morphine 4 MG/ML inj SYRINge IV PRN ×2 (08:55)
[2018-07-05] MEDS ORDERED: ondansetron/PF 4mg/2ml inj IV PRN ×2 (08:55→10:40)
[2018-07-05] MEDS ORDERED: ROPIVAcaine 0.5% (5mg/ml) 30ml vial ONE (10:05)
[2018-07-05] MEDS ORDERED: bisacodyl 10mg suppository rectal RC PRN (10:40)
[2018-07-05] MEDS ORDERED: magnesium hydroxide 30ml (MOM) UD suspension PO PRN (10:40)
[2018-07-05] MEDS ORDERED: HYDROmorphone 1 mg/ml syringe IV PRN (10:40)
[2018-07-05] MEDS ORDERED: HYDROcodone/acetaminophen 10/325mg tab PO PRN (10:40)
[2018-07-05] MEDS ORDERED: diphenhydrAMINE 25mg capsule PO PRN ×2 (10:40)
[2018-07-05] MEDS: HYDROcodone/acetaminophen 10/325mg tab PO PRN ×3 (12:39→21:33)
[2018-07-05] MEDS: potassium Cl 20mEq in NS 1,000 ML IV SCH (12:42)
[2018-07-05] MEDS ORDERED: tranexamic acid inj. 1,000 MG in normal saline 100ml IV soln 100 ML IV ONE (13:30)
[2018-07-05] MEDS: ceFAZolin 1GM/D5W- ADD-VANTAGE 50 ML IV SCH (16:14)
[2018-07-05] MEDS ORDERED: aspirin 325mg tablet PO SCH (17:30)
[2018-07-05] MEDS ORDERED: vancomycin/NS 1 GM ADD-VANTAGE 250 ML IV SCH (20:00)
[2018-07-05] MEDS: spironolactone 25 MG tablet PO SCH (21:34)
[2018-07-05] MEDS: sennosides 8.6mg tablet PO SCH (21:34)
[2018-07-06] MEDS: ceFAZolin 1GM/D5W- ADD-VANTAGE 50 ML IV SCH (00:18)
[2018-07-06 02:00] VITALS: BP 97/62
[2018-07-06] MEDS: HYDROcodone/acetaminophen 10/325mg tab PO PRN ×2 (03:35→16:45)
[2018-07-06] MEDS ORDERED: normal saline 500ml IV soln 500 ML IV ONE (04:00)
[2018-07-06 05:52] LABS: BASOPHILS # (AUTO) 0.1 X10'3 (0-0.2); BASOPHILS % (AUTO) 0.7 % (0-1); EOSINOPHILS # (AUTO) 0.2 X10'3 (0-0.9); HEMATOCRIT 35.1 % (42.0-52.0); HEMOGLOBIN 12.2 g/dl (14.0-17.9); LYMPHOCYTES # (AUTO) 0.5 X10'3 (1.1-4.8); LYMPHOCYTES % (AUTO) 7.8 % (21-51); MEAN CORPUSCULAR HEMOGLOBIN 32.3 PG (27.0-31.0); MEAN CORPUSCULAR HGB CONC 34.6 % (33.0-36.5); MEAN CORPUSCULAR VOLUME 93.2 FL (78-98); MEAN PLATELET VOLUME 12.4 FL (7.4-10.4); MONOCYTES # (AUTO) 0.7 X10'3 (0-0.9); MONOCYTES % (AUTO) 10.1 % (2-12); NEUTROPHILS # (AUTO) 5.3 X10'3 (1.8-7.7); NEUTROPHILS % (AUTO) 78.4 % (42-75); PLATELET COUNT 64 X10'3 (140-440); RED BLOOD COUNT 3.77 X10'6 (4.70-6.10); RED CELL DISTRIBUTION WIDTH 13.8 % (11.5-14.5); WHITE BLOOD COUNT 6.8 X10'3 (4.5-11.0)
[2018-07-06 06:00] VITALS: BP 105/65
[2018-07-06 06:55] LABS: ALANINE AMINOTRANSFERASE 23 U/L (12-78); ALBUMIN 2.9 G/DL (3.4-5.0); ALBUMIN/GLOBULIN RATIO 0.9 (1.1-1.5); ALKALINE PHOSPHATASE 58 IU/L (46-116); ANION GAP 9 (8-16); ASPARTATE AMINO TRANSFERASE 19 U/L (10-37); BILIRUBIN,TOTAL 1.5 MG/DL (0.1-1.0); BLOOD UREA NITROGEN 14 MG/DL (7-18); BUN/CREATININE RATIO 11.7 (5.4-32.0); CALCIUM 8.2 MG/DL (8.5-10.1); CHLORIDE 102 MMOL/L (99-107); GLUCOSE 103 MG/DL (70-104); POTASSIUM 4.2 MMOL/L (3.5-5.1); SODIUM 136 MMOL/L (135-145); TOTAL PROTEIN 6.3 G/DL (6.4-8.2); eGFR 59 ML/MIN
[2018-07-06] MEDS: aspirin 81mg tab.chew PO SCH ×2 (08:35→18:06)
[2018-07-06] MEDS: spironolactone 25 MG tablet PO SCH ×2 (08:36→20:51)
[2018-07-06] MEDS: potassium Cl 20mEq in NS 1,000 ML IV SCH ×3 (08:49→22:57)
[2018-07-06 10:00] VITALS: BP 104/69
[2018-07-06 14:00] VITALS: BP 107/65
[2018-07-06 18:00] VITALS: BP 101/77
[2018-07-06] MEDS: sennosides 8.6mg tablet PO SCH (20:50)
[2018-07-06 22:00] VITALS: BP 107/75
[2018-07-07] MEDS: HYDROcodone/acetaminophen 10/325mg tab PO PRN ×3 (05:35→17:07)
[2018-07-07 06:00] VITALS: BP 99/66
[2018-07-07 06:26] LABS: BASOPHILS % (AUTO) 0.6 % (0-1); EOSINOPHILS # (AUTO) 0.1 X10'3 (0-0.9); EOSINOPHILS % (AUTO) 1.6 % (0-6); HEMATOCRIT 33.1 % (42.0-52.0); HEMOGLOBIN 11.4 g/dl (14.0-17.9); LYMPHOCYTES # (AUTO) 0.4 X10'3 (1.1-4.8); LYMPHOCYTES % (AUTO) 5.4 % (21-51); MEAN CORPUSCULAR HGB CONC 34.3 % (33.0-36.5); MEAN CORPUSCULAR VOLUME 93.3 FL (78-98); MEAN PLATELET VOLUME 13.4 FL (7.4-10.4); MONOCYTES # (AUTO) 0.7 X10'3 (0-0.9); MONOCYTES % (AUTO) 9.2 % (2-12); NEUTROPHILS # (AUTO) 6.1 X10'3 (1.8-7.7); NEUTROPHILS % (AUTO) 83.2 % (42-75); PLATELET COUNT 59 X10'3 (140-440); RED BLOOD COUNT 3.55 X10'6 (4.70-6.10); RED CELL DISTRIBUTION WIDTH 13.4 % (11.5-14.5); WHITE BLOOD COUNT 7.3 X10'3 (4.5-11.0)
[2018-07-07 07:36] LABS: ALANINE AMINOTRANSFERASE 14 U/L (12-78); ALBUMIN 2.8 G/DL (3.4-5.0); ALBUMIN/GLOBULIN RATIO 0.8 (1.1-1.5); ALKALINE PHOSPHATASE 57 IU/L (46-116); ANION GAP 9 (8-16); ASPARTATE AMINO TRANSFERASE 16 U/L (10-37); BILIRUBIN,TOTAL 1.4 MG/DL (0.1-1.0); BLOOD UREA NITROGEN 16 MG/DL (7-18); BUN/CREATININE RATIO 15.1 (5.4-32.0); CALCIUM 8.8 MG/DL (8.5-10.1); CHLORIDE 101 MMOL/L (99-107); CREATININE 1.06 MG/DL (0.60-1.10); GLUCOSE 121 MG/DL (70-104); POTASSIUM 4.4 MMOL/L (3.5-5.1); SODIUM 134 MMOL/L (135-145); TOTAL CARBON DIOXIDE 24.4 MMOL/L (24-32); TOTAL PROTEIN 6.3 G/DL (6.4-8.2); eGFR 68 ML/MIN
[2018-07-07] MEDS: spironolactone 25 MG tablet PO SCH ×2 (08:58→19:32)
[2018-07-07] MEDS: aspirin 81mg tab.chew PO SCH ×2 (08:58→17:07)
[2018-07-07 10:00] VITALS: BP 103/56
[2018-07-07 18:00] VITALS: BP 98/65
[2018-07-07 19:30] VITALS: BP 95/60
[2018-07-07] MEDS: sennosides 8.6mg tablet PO SCH (19:32)
[2018-07-07 22:00] VITALS: BP 84/55
[2018-07-08] MEDS: acetaminophen 325mg tablet PO PRN ×2 (05:06→17:38)
[2018-07-08 06:00] VITALS: BP 99/58
[2018-07-08 07:20] LABS: ALANINE AMINOTRANSFERASE 13 U/L (12-78); ALBUMIN 2.6 G/DL (3.4-5.0); ALBUMIN/GLOBULIN RATIO 0.7 (1.1-1.5); ALKALINE PHOSPHATASE 60 IU/L (46-116); ANION GAP 7 (8-16); ASPARTATE AMINO TRANSFERASE 16 U/L (10-37); BILIRUBIN,TOTAL 0.8 MG/DL (0.1-1.0); BLOOD UREA NITROGEN 26 MG/DL (7-18); BUN/CREATININE RATIO 13.1 (5.4-32.0); CALCIUM 8.3 MG/DL (8.5-10.1); CHLORIDE 100 MMOL/L (99-107); CREATININE 1.98 MG/DL (0.60-1.10); GLUCOSE 114 MG/DL (70-104); POTASSIUM 4.3 MMOL/L (3.5-5.1); SODIUM 131 MMOL/L (135-145); TOTAL CARBON DIOXIDE 24.3 MMOL/L (24-32); TOTAL PROTEIN 6.2 G/DL (6.4-8.2); eGFR 33 ML/MIN
[2018-07-08] MEDS: aspirin 81mg tab.chew PO SCH ×2 (07:30→17:38)
[2018-07-08] MEDS: spironolactone 25 MG tablet PO SCH ×2 (07:30→19:46)
[2018-07-08 07:40] LABS: BASOPHILS # (AUTO) 0.1 X10'3 (0-0.2); BASOPHILS % (AUTO) 1.5 % (0-1); EOSINOPHILS # (AUTO) 0.3 X10'3 (0-0.9); EOSINOPHILS % (AUTO) 3.7 % (0-6); HEMATOCRIT 29.5 % (42.0-52.0); HEMOGLOBIN 10.1 g/dl (14.0-17.9); LYMPHOCYTES # (AUTO) 0.7 X10'3 (1.1-4.8); LYMPHOCYTES % (AUTO) 9.2 % (21-51); MEAN CORPUSCULAR HEMOGLOBIN 32.1 PG (27.0-31.0); MEAN CORPUSCULAR HGB CONC 34.4 % (33.0-36.5); MEAN CORPUSCULAR VOLUME 93.3 FL (78-98); MEAN PLATELET VOLUME 12.6 FL (7.4-10.4); MONOCYTES # (AUTO) 0.8 X10'3 (0-0.9); MONOCYTES % (AUTO) 10.6 % (2-12); NEUTROPHILS # (AUTO) 5.6 X10'3 (1.8-7.7); PLATELET COUNT 76 X10'3 (140-440); RED BLOOD COUNT 3.16 X10'6 (4.70-6.10); RED CELL DISTRIBUTION WIDTH 13.8 % (11.5-14.5); WHITE BLOOD COUNT 7.5 X10'3 (4.5-11.0)
[2018-07-08 10:00] VITALS: BP 123/70
[2018-07-08 17:00] VITALS: BP 112/62
[2018-07-08] MEDS: sennosides 8.6mg tablet PO SCH (21:00)
[2018-07-08 22:00] VITALS: BP 90/56
[2018-07-09 05:00] VITALS: BP 105/70
[2018-07-09] MEDS: acetaminophen 325mg tablet PO PRN (05:03)
[2018-07-09] MEDS: aspirin 81mg tab.chew PO SCH ×2 (08:03→17:56)
[2018-07-09] MEDS: spironolactone 25 MG tablet PO SCH ×2 (08:03→19:54)
[2018-07-09 10:00] VITALS: BP 114/68
[2018-07-09 18:00] VITALS: BP 110/65
[2018-07-09] MEDS: sennosides 8.6mg tablet PO SCH (21:00)
[2018-07-09 21:21] VITALS: BP 110/66
[2018-07-10 05:00] VITALS: BP 105/67
[2018-07-10 06:40] LABS: BASOPHILS % (AUTO) 0.4 % (0-1); EOSINOPHILS # (AUTO) 0.1 X10'3 (0-0.9); EOSINOPHILS % (AUTO) 4.1 % (0-6); HEMATOCRIT 27.8 % (42.0-52.0); HEMOGLOBIN 9.6 g/dl (14.0-17.9); LYMPHOCYTES # (AUTO) 0.3 X10'3 (1.1-4.8); LYMPHOCYTES % (AUTO) 11.3 % (21-51); MEAN CORPUSCULAR HGB CONC 34.5 % (33.0-36.5); MEAN CORPUSCULAR VOLUME 92.9 FL (78-98); MEAN PLATELET VOLUME 11.4 FL (7.4-10.4); MONOCYTES # (AUTO) 0.3 X10'3 (0-0.9); MONOCYTES % (AUTO) 11.4 % (2-12); NEUTROPHILS # (AUTO) 2.1 X10'3 (1.8-7.7); NEUTROPHILS % (AUTO) 72.8 % (42-75); PLATELET COUNT 79 X10'3 (140-440); RED BLOOD COUNT 2.99 X10'6 (4.70-6.10)
[2018-07-10 06:52] LABS: ALBUMIN 2.4 G/DL (3.4-5.0); ANION GAP 11 (8-16); BLOOD UREA NITROGEN 19 MG/DL (7-18); BUN/CREATININE RATIO 18.1 (5.4-32.0); CALCIUM 8.7 MG/DL (8.5-10.1); CHLORIDE 105 MMOL/L (99-107); CREATININE 1.05 MG/DL (0.60-1.10); GLUCOSE 87 MG/DL (70-104); SODIUM 141 MMOL/L (135-145); TOTAL CARBON DIOXIDE 25.2 MMOL/L (24-32); eGFR 69 ML/MIN
[2018-07-10 06:58] LABS: TOTAL CELLS COUNTED 100
[2018-07-10 06:59] LABS: PLATELET ESTIMATE DECREASED
[2018-07-10] MEDS: aspirin 81mg tab.chew PO SCH (07:49)
[2018-07-10] MEDS: spironolactone 25 MG tablet PO SCH (07:49)
[2018-07-10] MEDS ORDERED: FLO0.4C PO (08:22)
[2018-07-10] MEDS ORDERED: WALKERFR (08:22)
[2018-07-10] MEDS ORDERED: ASPI-1265 PO (08:24)
[2018-07-10 10:00] VITALS: BP 106/55
[2018-07-10] MEDS ORDERED: tamsulosin 0.4mg capsule PO SCH (21:00)
== END 2018-07-10 12:54 | disposition home health service (06) | DRG 470 ==
LOC: PAS IN 05:12 → EDSTATUS 07:30 → ORTHO 4S 11:40
PROVIDERS: ADMIT Orthopaedic Surgery; ATTEND Orthopaedic Surgery
PROC: 3E0T3BZ Introduction of Anesthetic Agent into Peripheral Nerves and Plexi, Percutaneous Approach (ICD-10-PCS; 2018-07-05)
PROC: 0SRD0J9 Replacement of Left Knee Joint with Synthetic Substitute, Cemented, Open Approach (ICD-10-PCS; principal; 2018-07-05 07:22)
DX: M17.12 Unilateral primary osteoarthritis, left knee (principal); D62 Acute posthemorrhagic anemia; J44.9 Chronic obstructive pulmonary disease, unspecified; B19.20 Unspecified viral hepatitis C without hepatic coma; K70.30 Alcoholic cirrhosis of liver without ascites; G62.9 Polyneuropathy, unspecified; R33.9 Retention of urine, unspecified; Z98.42 Cataract extraction status, left eye; Z98.41 Cataract extraction status, right eye; Z90.49 Acquired absence of other specified parts of digestive tract; Z88.8 Allergy status to other drugs, medicaments and biological substances; Z79.899 Other long term (current) drug therapy
CPT/HCPCS: 36415; 71046; 80048; 80053; 85025; 85610; 85730; 86885; 86900; 86901; 86920; 87070; 93005; 97110; 97116; 97162; 97530; A4315; A4333; A4353; A6454; A7000; C1713; C1758; C1776; J0690; J0735; J2250; J2704; J2795; J3010; J3370; J3490; J7030; J7120; Q0163

== ENCOUNTER 2020-06-19 09:50 | Day surgery (SDC) | payer MEDICARE, MEDICAID, OTHER ==
[2020-06-12 16:22] LABS: CLARITY,URINE CLEAR (Clear); COLOR,URINE YELLOW (Yellow); GLUCOSE, URINE NEGATIVE (Neg); KETONES,URINE NEGATIVE (Neg); LEUKOCYTE ESTERASE ,URINE NEGATIVE (Neg); NITRITES, URINE NEGATIVE (Neg); OCCULT BLOOD,URINE NEGATIVE (Neg); PH,URINE 6.5 (4.8-8.0); PROTEIN,URINE NEGATIVE (Neg)
[2020-06-12 16:23] LABS: UA COLLECTION TYPE VOIDED
[2020-06-12 16:25] LABS: BASOPHILS % (AUTO) 0.7 % (0-1); EOSINOPHILS # (AUTO) 0.1 X10'3 (0-0.9); EOSINOPHILS % (AUTO) 1.9 % (0-6); LYMPHOCYTES # (AUTO) 0.6 X10'3 (1.1-4.8); LYMPHOCYTES % (AUTO) 12.6 % (21-51); MEAN CORPUSCULAR HEMOGLOBIN 31.6 PG (27.0-31.0); MEAN CORPUSCULAR HGB CONC 33.1 g/dL (33.0-36.5); MEAN CORPUSCULAR VOLUME 95.4 FL (78-98); MEAN PLATELET VOLUME 11.1 FL (7.4-10.4); MONOCYTES # (AUTO) 0.3 X10'3 (0-0.9); MONOCYTES % (AUTO) 6.8 % (2-12); NEUTROPHILS # (AUTO) 3.9 X10'3 (1.8-7.7); PRE OP HEMATOCRIT 44.8 % (42.0-52.0); PRE OP HEMOGLOBIN 14.8 g/dL (14.0-17.9); RED BLOOD COUNT 4.69 X10'6 (4.70-6.10); RED CELL DISTRIBUTION WIDTH 13.4 % (11.5-14.5)
[2020-06-12 16:35] LABS: PRE OP INR 1.1 INR; PRE OP PROTIME 11.2 SECONDS (9.0-12.0)
[2020-06-12 16:46] LABS: ALBUMIN 4.2 G/DL (3.4-5.0); ALBUMIN/GLOBULIN RATIO 1.1 (1.1-1.5); ALKALINE PHOSPHATASE 66 IU/L (46-116); BLOOD UREA NITROGEN 23 MG/DL (7-18); CALCIUM 9.2 MG/DL (8.5-10.1); CHLORIDE 105 MMOL/L (99-107); CREATININE 1.15 MG/DL (0.60-1.10); PRE OP ALT 20 U/L (30-65); PRE OP ANION GAP 9 (8-16); PRE OP AST 18 U/L (10-37); PRE OP BILIRUB, TOTAL 0.7 MG/DL (0.0-1.0); PRE OP GLUCOSE 92 MG/DL (70-104); PRE OP POTASSIUM 4.2 MMOL/L (3.4-5.1); PRE OP SODIUM 140 MMOL/L (135-145); TOTAL CARBON DIOXIDE 25.9 MMOL/L (24-32); eGFR 62 ML/MIN
[2020-06-12 16:50] LABS: PRE OP PLATELET COUNT 79 X10'3 (140-440)
[~2020-06-19] VITALS: Ht 170.2 cm; Wt 108.0 kg
[2020-06-19] VITALS (19 sets, daily range): BP systolic 115–151; BP diastolic 70–98
[~2020-06-19 09:50] MED LIST changes: +BUDE10.2 INH; -CHOL2000 PO; -CYAN-19 PO; +DOCU100T PO; +FINA5TAB11 PO; +FLO0.4C PO; +NAPR-996 PO; +SENN-263 PO; -SPIR25TA5 PO; +famotidine 20mg tablet PO ONE
[2020-06-19] MEDS ORDERED: BUPIVAcaine/PF 2.5 mg/ml (0.25%) 30ml vial ONE (11:23)
[2020-06-19] MEDS ORDERED: neostigmine methylsulfate 1 MG/ML 10ml vial ONE (12:12)
[2020-06-19] MEDS ORDERED: ePHEDrine 50MG/ML INJ. ONE (12:12)
[2020-06-19] MEDS ORDERED: sevoflurane 250ml liquid IH ONE (12:12)
[2020-06-19] MEDS ORDERED: midazolam 2 mg/2 ml injection ONE (12:19)
[2020-06-19] MEDS ORDERED: LIDOcaine 2% 5ml jelly ONE (12:54)
[2020-06-19] MEDS ORDERED: LIDOcaine 2% (20mg/ml) 5ml vial ONE (12:54)
[2020-06-19] MEDS ORDERED: fentaNYL /PF 50mcg/ml 5ml ampule ONE (12:54)
[2020-06-19] MEDS ORDERED: rocuronium 10mg/ml inj IV ONE ×3 (12:54→14:49)
[2020-06-19] MEDS ORDERED: 0.9 % SODIUM CHLORIDE 10 ML VIAL ONE (12:54)
[2020-06-19] MEDS ORDERED: LIDOcaine 1%/PF 5ML 10 MG/ML VIAL ONE (12:54)
[2020-06-19] MEDS ORDERED: propofol inj 20 ML IV ONE (12:54)
[2020-06-19] MEDS ORDERED: ondansetron/PF 4mg/2ml inj ONE (12:56)
[2020-06-19] MEDS ORDERED: dexamethasone sod phosphate 4mg/ml inj. ONE (12:56)
[2020-06-19] MEDS ORDERED: ringers solution, lacted 1,000 ML IV SCH (13:23)
[2020-06-19] MEDS ORDERED: morphine 2 MG/ML inj. syringe IV PRN (13:25)
[2020-06-19] MEDS ORDERED: meperidine/PF 25mg/ml syringe IV PRN ×3 (13:25)
[2020-06-19] MEDS ORDERED: acetaminophen 1,000mg/100ml IV 100 ML IV PRN (13:25)
[2020-06-19] MEDS ORDERED: morphine 4 MG/ML inj SYRINge IV PRN (13:25)
[2020-06-19] MEDS ORDERED: ondansetron/PF 4mg/2ml inj IV PRN (13:25)
[2020-06-19] MEDS ORDERED: BUPIVACAINE liposomal/PF 13.3 MG/ML vial IM ONE (14:03)
[2020-06-19] MEDS ORDERED: BUPIVAcaine/PF 2.5mg/ml (0.25%) 10ml vial ONE (14:03)
[2020-06-19] MEDS ORDERED: glycopyrrolate 0.2mg/ml inj ONE (14:49)
--- NOTE | 2020-06-19 15:03 | NUR ---
Received from OR via [facility], accompanied by Anesthesiologist DR SOLITARIO and report given by Anesthesiologist. PT DROWSY, DENIES PAIN, ABDOMEN W/3 LAP SITES W/BANDAIDS CDI. Addendum: 06/19/20 at 1552 by Nancy Damon RN Amended: Links added.
[2020-06-19] MEDS ORDERED: HYDROcodone/acetaminophen 10/325mg tab PO ONE (16:30)
--- NOTE | 2020-06-19 18:33 | NUR ---
PT ABLE TO AMBULATE SHORT DISTANCES W/CANE, WAS ABLE TO VOID SMALL AMT APPROXIMATELY 115 ML, D/C INSTRUCTIONS GIVEN AND GONE OVER W/PT WHO VERBALIZED UNDERSTANDING, PT D/CD TO HOME VIA W/C TO [facility] W/O INCIDENT. Addendum: 06/19/20 at 1844 by Nancy Damon RN Amended: Links added.
== END 2020-06-19 18:33 | disposition home or self-care (01) ==
LOC: PAS 09:50
PROVIDERS: ATTEND Surgery
DX: K43.2 Incisional hernia without obstruction or gangrene (principal); K42.9 Umbilical hernia without obstruction or gangrene; K74.60 Unspecified cirrhosis of liver; Z96.642 Presence of left artificial hip joint; Z88.8 Allergy status to other drugs, medicaments and biological substances; Z96.651 Presence of right artificial knee joint; Z90.49 Acquired absence of other specified parts of digestive tract; Z20.828 Contact with and (suspected) exposure to other viral communicable diseases; Z98.890 Other specified postprocedural states; J44.9 Chronic obstructive pulmonary disease, unspecified
CPT/HCPCS: 36415; 49652; 49654; 71046; 80053; 81003; 82948; 85025; 85610; 85730; 86885; 86900; 86901; 87635; 93005; C1758; C1781; C9290; J1100; J2001; J2175; J2250; J2405; J2704; J2710; J3010; J3490; J7120; A4215; A4618